=== PATIENT | female | born 1970 | race Caucasian/White ===

== ENCOUNTER → 2017-07-11 | Outpatient (CLI) | payer OTHER, MEDICARE ==
[~2017-07-11] MED LIST: EXCEDRIN MIGRAI1 TA1 PO; LORTAB 10/500 T1 TAB PO; LORTAB 7.5-5001 TAB PO; PHENERGAN PO; SKELAXIN PO; TYLOX 5/500 CAP1 CAP PO; [UNRECOGNIZED DRUG - REMARK]
--- NOTE | ~2017-07-11 | CR150 ---
[facility]. [facility] A Service of [facility] RADIOLOGY TEXT RESULTS PATIENT: JAVIER NATION LOCATION: [facility] : 68 UNIT #: [id number] AGE: [address]: Wil Carcamo MD SEX: F ORDER DR: [id number] [address] [address] [id number] O MR#: [id number] Acc #: [id number] NAME: JAVIER NATION : 1970 SEX: F STUDY DATE/TIME: 07/11/2017 15:27 UNIT: [facility] ROOM: STUDY DESCRIPTION: CR Hip Min 2 Views Lt Attending Physician: Wil Carcamo M.D. Referring Physician: Wil Carcamo M.D. Ordering Physician: Wil Carcamo M.D. Primary Care Physician: Wil Carcamo M.D. MEDICAL IMAGING REPORT This report is preliminary unless electronic signature is present. EXAM Left hip, 07/11/2017 HISTORY 47-year-old female with left hip pain status post fall 06/28/2017 COMPARISON None. FINDINGS 2 views of the left hip demonstrate no acute fracture or dislocation. There are small osteophytes noted at the femoral head and neck junctions bilaterally. Bony pelvis intact. Sacrum and SI joints intact. Soft tissues are unremarkable. IMPRESSION 1. No acute fracture or dislocation. 2. Mild bilateral hip arthrosis. Dictated by... Zeb Corona M.D. THIS IS AN ELECTRONICALLY VERIFIED REPORT Zeb Corona M.D. at 07/12/2017 4:06 PM NOAH/nito TD: 07/12/2017 05:33 JOB #: [id number] MEDICAL IMAGING REPORT Page 1 of 1
== END | disposition home or self-care (01) ==
LOC: SRAD 15:22
DX: M25.552 Pain in left hip (principal); M16.0 Bilateral primary osteoarthritis of hip
CPT/HCPCS: 73502